=== PATIENT | male | born 1975 | race African-American/Black ===

== ENCOUNTER 2016-04-22 06:41 | Emergency (ER) | payer OTHER ==
[~2016-04-22] VITALS: Ht 175.3 cm; Wt 77.1 kg
[2016-04-22] MEDS ORDERED: ALBUTEROL2.5 MG/3 M INH (06:55)
[2016-04-22] MEDS ORDERED: Albuterol ud Inhalation HHN ONE (07:00)
[2016-04-22] MEDS ORDERED: Ipratropium 0.02% Inh Soln 2.5ml UD HHN ONE (07:00)
[2016-04-22] MEDS ORDERED: PredniSONE 20mg tab ORAL ONE (07:00)
[2016-04-22 07:06] VITALS: BP 138/77
[2016-04-22] MEDS ORDERED: ALBUTEROL SULF8.5 GM INH (07:37)
[2016-04-22] MEDS ORDERED: PREDNISONE20 MG ORAL (07:37)
[2016-04-22 07:46] VITALS: BP 121/79
[2016-04-22 07:47] VITALS: BP 121/79
--- NOTE | 2016-04-22 09:33 | Emergency Room Report ---
History of Present Illness General Chief Complaint: Asthma Source: Patient Present Illness HPI 40-year-old male presents to ED for evaluation. States since 2 AM he has felt short of breath. History of asthma. Does not have an inhaler. Denies any cough. Denies any fevers or chills. Denies sore throat or earache. Denies sick contacts or recent travel. No other aggravating relieving factors. Denies any other associated symptoms Allergies: Coded Allergies: No Known Allergies (Unverified , 04/22/16) Patient History Past Medical History: asthma Past Surgical History: none Pertinent Family History: none Social History: Denies: alcohol use, drug use, smoking Immunizations: UTD Reviewed Nursing Documentation: PMH: Agreed, PSxH: Agreed Nursing Documentation-PMH Hx Asthma: Yes Review of Systems All Other Systems: negative except mentioned in HPI Physical Exam Vital Signs Date Time Temp Pulse Resp B/P Pulse Ox O2 Delivery O2 Flow Rate FiO2 04/22/16 06:49 97.2 97 22 95/74 97 Room Air 04/22/16 07:00 2.0 28 Sp02 EP Interpretation: reviewed, normal General Appearance: no apparent distress, alert, GCS 15, non-toxic Head: normocephalic Eyes: bilateral eye PERRL, bilateral eye normal inspection ENT: normal ENT inspection Neck: normal inspection Respiratory: wheezing Cardiovascular #1: regular rate, rhythm, no edema Gastrointestinal: normal bowel sounds, non tender, soft, non-distended, no guarding, no rebound Rectal: deferred Genitourinary: no CVA tenderness Musculoskeletal: back normal Neurologic: alert, oriented x3, responsive, motor strength/tone normal, sensory intact, speech normal Psychiatric: normal inspection Skin: normal inspection Lymphatic: normal inspection Medical Decision Making Diagnostic Impression: Primary Impression: Asthma attack ER Course Hospital Course 40-year-old male presents to ED complaining of wheezing Differential diagnoses include: URI, bronchitis, asthma/COPD, pneumonia Clinical course Patient placed on stretcher. After initial history, physical exam reveals a male in no acute distress. Bilateral TM unremarkable. No pharyngeal erythema. No tonsillar exudates. No lymphadenopathy. Mild wheezing noted on exam, no signs of respiratory distress or retractions. Patient given Prednisone and albuterol/atrovent treatment in ED with symptoms improved. Reassurance given Diagnosis - asthma attack Stable and discharged home with prescriptions for albuterol, prednisone. Instructed to followup with PMD. Return to ED if symptoms recur or worsen Last Vital Signs Date Time Temp Pulse Resp B/P Pulse Ox O2 Delivery O2 Flow Rate FiO2 04/22/16 07:47 85 18 121/79 98 Room Air 04/22/16 07:06 97.2 04/22/16 07:00 2.0 28 Status: improved Disposition: HOME, SELF-CARE Condition: Stable Scripts Prednisone* (PREDNISONE*) 20 Mg Tablet 40 MG ORAL DAILY, #10 TAB Prov: KEMAL RHOADES M.D. 04/22/16 Albuterol Sulfate* (ALBUTEROL SULFATE MDI*) 8.5 Gm Hfa.aer.ad 2 PUFF INH Q4H, #1 INH 0 Refills Prov: KEMAL RHOADES M.D. 04/22/16 Referrals: NON PHYSICIAN (PCP) Patient Instructions: Asthma, Adult KEMAL RHOADES M.D. Apr 22, 2016 09:33
== END 2016-04-22 07:50 | disposition home or self-care (01) ==
LOC: EMR 07:10
DX: J45.901 Unspecified asthma with (acute) exacerbation (principal)
CPT/HCPCS: 94640; 94664; 99284